=== PATIENT | male | born 1960 | race Caucasian/White ===

== ENCOUNTER 2019-03-12 12:51 | Inpatient (IN) | payer OTHER ==
[2019-03-12] MEDS: morphine 2 MG INJ IV (16:47)
[2019-03-12] MEDS ORDERED: ACETAMINOPHEN 325 MG TAB PO (17:00)
[2019-03-12] MEDS ORDERED: ZOLPIDEM 5 MG TAB PO (17:00)
[2019-03-12] MEDS ORDERED: ONDANSETRON 4 MG INJ IV (17:00)
[2019-03-12] MEDS ORDERED: HYDROCODONE/APAP (5/325) TAB PO (17:00)
[2019-03-12] MEDS ORDERED: NACL 0.9% 3 ML SYG IV (17:00)
[2019-03-12] MEDS ORDERED: DOCUSATE SODIUM 100 MG CAP PO (17:00)
[2019-03-12] MEDS: CEFTRIAXONE 1 GM/50 ML (PMX) 50 ML IVPB (17:46)
[2019-03-12] MEDS: SOD CHLORIDE 0.9% 1,000 ML IV (17:46)
[2019-03-12] MEDS: TAMSULOSIN (SR) 0.4 MG CAP PO (21:01)
[2019-03-13] MEDS: morphine 2 MG INJ IV
[2019-03-13] MEDS: SOD CHLORIDE 0.9% 1,000 ML IV ×3 (02:58→13:47)
[2019-03-13 05:50] LABS: ADD MAN DIFF? NO
[2019-03-13 05:59] LABS: BASOPHILS % 0.1 % (0.0-2.0); EOSINOPHILS # 0.1 10^3/ul (0.0-0.5); EOSINOPHILS % 0.8 % (0.0-7.0); HEMATOCRIT 41.9 % (42.0-52.0); HEMOGLOBIN 13.8 g/dl (14.0-18.0); LYMPHOCYTES # 1.8 10^3/ul (0.8-2.9); LYMPHOCYTES % 24.3 % (15.0-51.0); MEAN CORPUSCULAR HEMOGLOBIN 27.7 pg (29.0-33.0); MEAN CORPUSCULAR HGB CONC 32.9 g/dl (32.0-37.0); MONOCYTE # 0.7 10^3/ul (0.3-0.9); MONOCYTES % 9.6 % (0.0-11.0); NEUTROPHIL # 4.9 10^3/ul (1.6-7.5); NEUTROPHILS % 64.8 % (39.0-77.0); PLATELET COUNT 258 10^3/UL (140-415); RED BLOOD COUNT 4.99 10^6/ul (4.70-6.10); RED CELL DISTRIBUTION WIDTH 13.3 % (11.5-14.5)
[2019-03-13 05:59] LABS: WHITE BLOOD COUNT 7.5 10^3/ul (4.8-10.8)
[2019-03-13 06:35] LABS: ANION GAP 5 (5-13); BLOOD UREA NITROGEN 16 mg/dl (7-20); CALCIUM 8.5 mg/dl (8.4-10.2); CARBON DIOXIDE 30 mmol/L (21-31); CHLORIDE 108 mmol/L (97-110); CREATININE 0.97 mg/dl (0.61-1.24); Estimated GFR > 60 mL/min (>60); GLUCOSE 106 mg/dl (70-220); MAGNESIUM 2.3 mg/dl (1.7-2.5); PHOSPHORUS 3.7 mg/dl (2.5-4.9); POTASSIUM 3.9 mmol/L (3.5-5.1); SODIUM 143 mmol/L (135-144)
[2019-03-13 08:20] LABS: HEMOGLOBIN A1C 5.9 % (0-5.9)
[2019-03-13 14:02] LABS: ADD UMIC NO; UR ASCORBIC ACID NEGATIVE (NEGATIVE); UR BILIRUBIN (Dip) NEGATIVE (NEGATIVE); UR BLOOD (Dip) NEGATIVE (NEGATIVE); UR CLARITY CLEAR (CLEAR); UR COLOR STRAW (YELLOW); UR GLUCOSE (Dip) NEGATIVE (NEGATIVE); UR KETONES (Dip) NEGATIVE (NEGATIVE); UR LEUKOCYTE ESTERASE (Dip) NEGATIVE Leu/ul (NEGATIVE); UR NITRITE (Dip) NEGATIVE (NEGATIVE); UR SPECIFIC GRAVITY (Dip) 1.006 (1.003-1.030); UR TOTAL PROTEIN (Dip) NEGATIVE (NEGATIVE); UR UROBILINOGEN (Dip) NEGATIVE (NEGATIVE)
[2019-03-13] MEDS: CEFTRIAXONE 1 GM/50 ML (PMX) 50 ML IVPB (16:32)
== END 2019-03-13 21:10 | disposition home or self-care (01) | DRG 694 ==
LOC: 2NE 12:51
DX: N20.0 Calculus of kidney (principal); N39.0 Urinary tract infection, site not specified
CPT/HCPCS: 74018; 80048; 81003; 82355; 83036; 83735; 84100; 85025